=== PATIENT | male | born 1990 ===

== ENCOUNTER 2020-11-17 13:05 | Outpatient (CLI) | payer OTHER ==
--- NOTE | 2020-11-17 13:35 | XRAY Report ---
PROCEDURE: Shoulder 3 View RT INDICATIONS: PAIN OF RIGHT SHOULDER JOINT TECHNIQUE: 3 views of the shoulder were acquired. COMPARISON: None. FINDINGS: Bones: No fractures or dislocations. No suspicious bony lesions. Visualized ribs appear intact. Soft tissues: No suspicious soft tissue calcifications. IMPRESSION: No evidence acute bony abnormality of the right shoulder. If clinical suspicion and/or symptoms persist, further assessment with repeat plain films or advanced imaging (e.g., CT, MRI, or bone scan) may be helpful for further assessment. Reviewed by: Bam Mclaughlin MD on 11/17/2020 1:34 PM PDT Approved by: Bam Mclaughlin MD on 11/17/2020 1:34 PM PDT Station ID: [id number]
== END 2020-11-17 13:06 | disposition home or self-care (01) ==
LOC: DI.S 13:05
PROVIDERS: ATTEND Physician Assistant
DX: M25.511 Pain in right shoulder (principal)